=== PATIENT | female | born 1980 | race Two or more races ===

== ENCOUNTER 2017-03-10 09:48 | Inpatient (IN) | payer OTHER ==
[2017-03-10 11:24] VITALS: BMI 30.5
--- NOTE | 2017-03-10 13:13 | HP ---
COWS - Scale Resting Pulse: 0= [place] 80 or Below Sweatin=Flushed/Facial Moisture Restless Observation: 3= Extraneous Movement Pupil Size: 2= Moderately Dilated Bone or Joint Aches: 2= Severe Diffuse Aches Runny Nose/ Eye Tearin= Runny Nose/Eyes GI Upset > 30mins: 3= Vomiting/Diarrhea Tremor Observation: 2= Slight Tremor Visible Yawning Observation: 2= >3x During Session Anxiety or Irritability: 2=Irritable/Anxious Goose Flesh Skin: 0=Smooth Skin COWS Score: 20 Admission ROS S - HPI Chief Complaint: i need help to stop using heroin Allergies/Adverse Reactions: Allergies Allergy/AdvReac Type Severity Reaction Status Date / Time Sulfa (Sulfonamide Allergy Severe Difficulty Verified 03/10/17 12:49 Antibiotics) Breathing History of Present Illness: this 36 years old female with heroin dependence,withdrawal symptom,last detox 2002 [facility] seizure last 7 ears ago 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 fell from height at age of 53 years old with multiple fractures 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13 no significant period of sobriety - Ebola screening Have you traveled outside of the country in the last 21 days: No Have you had contact with anyone from an Ebola affected area: No Have you been sick,other than usual withdrawal symptoms: No Do you have a fever: No - Review of Systems Constitutional: Chills, Diaphoresis, Loss of Appetite, Malaise, Night Sweats, Changes in sleep, Weakness EENT: reports: Tearing, Nose Congestion Respiratory: reports: No Symptoms reported Cardiac: reports: No Symptoms Reported GI: reports: Diarrhea, Nausea, Vomiting, Abdominal cramping : reports: No Symptoms Reported Musculoskeletal: reports: Back Pain, Joint Pain, Muscle Pain, Joint Stiffness Integumentary: reports: Dryness Neuro: reports: Headache, Tremors Endocrine: reports: No Symptoms Reported Hematology: reports: No Symptoms Reported Psychiatric: reports: Judgement Intact, Mood/Affect Appropiate, other (ptsd) Patient History - Patient Medical History Hx Anemia: No Hx Asthma: No Hx Chronic Obstructive Pulmonary Disease (COPD): No Hx Cancer: Yes (tumor of l2 at age of [age] years old treated with radiation therapy) Hx Cardiac Disorders: No Hx Congestive Heart Failure: No Hx Hypertension: No Hx Hypercholesterolemia: No Hx Pacemaker: No HX Cerebrovascular Accident: No Hx Seizures: Yes (last 7 years ago) Hx Dementia: No Hx Diabetes: No Hx Gastrointestinal Disorders: Yes (gerd) Hx Liver Disease: No Hx Genitourinary Disorders: No Hx Sexually Transmitted Disorders: No Hx Renal Disease (ESRD): No Hx Thyroid Disease: No Hx Human Immunodeficiency Virus (HIV): No (last 08/13 negative) Hx Hepatitis C: No Hx Depression: No Hx Suicide Attempt: No Hx Bipolar Disorder: No Hx Schizophrenia: No Other Medical History: ptsd,no suicidal,no homicidal - Patient Surgical History Hx Orthopedic Surgery: Yes (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 History Hx Alcohol Use: No Hx Substance Use: Yes Substance Use Type: Heroin, Tranquilizers Family Disease History - Family Disease History Family Disease History: Other: Mother (cancer) Admission Physical Exam BHS - Vital Signs Vital Signs: Vital Signs - 24 hr 03/10/17 11:13 Temperature 97 F L Pulse Rate 80 Respiratory 20 Rate Blood Pressure 112/66 - Physical General Appearance: Yes: Moderate Distress, Irritable, Sweating, Anxious HEENTM: Yes: Hearing grossly Normal, Normal ENT Inspection, FLAKITA Respiratory: Yes: Lungs Clear, Normal Breath Sounds, No Respiratory Distress Neck: Yes: Within Normal Limits Breast: Yes: Breast Exam Deferred Cardiology: Yes: Within Normal Limits, Regular Rhythm, Regular Rate, S1, S2 Abdominal: Yes: Normal Bowel Sounds, Non Tender, Flat, Soft Genitourinary: Yes: Within Normal Limits Back: Yes: Within Normal Limits, Muscle Spasm Musculoskeletal: Yes: Back pain, Joint Stiffness, Muscle Pain Extremities: Yes: Normal Inspection, Normal Range of Motion, Tremors Neurological: Yes: deflash and wash operator II-XII NML intact, Fully Oriented, Alert, Motor Strength 5/5 Integumentary: Yes: Dry Lymphatic: Yes: Within Normal Limits - Diagnostic (1) Opioid dependence with withdrawal Current Visit: Yes Status: Acute (2) Uncomplicated sedative, hypnotic or anxiolytic withdrawal Current Visit: Yes Status: Acute (3) PTSD (post-traumatic stress disorder) Current Visit: Yes Status: Acute (4) Traumatic amputation of right index finger Current Visit: Yes Status: Acute (5) Traumatic amputation of right middle finger Current Visit: Yes Status: Acute (6) Fall from height of greater than 3 feet Current Visit: Yes Status: Acute (7) GERD (gastroesophageal reflux disease) Current Visit: Yes Status: Acute (8) Lumbar spine tumor Current Visit: Yes Status: Acute (9) Nicotine dependence Current Visit: Yes Status: Acute Cleared for Admission [facility] - Detox or Rehab [facility] Level of Care: Medically Managed Detox Regimen/Protocol: Methadone/Valium [facility] Breath Alcohol Content Breath Alcohol Content: 0.060 Urine Pregancy Test - Result Urine Test Results: Negative- NO Line Present Urine Drug Screen - Results Drug Screen Negative: No Urine Drug Screen Results: OPI-Opiates, MTD-Methadone
[2017-03-10] MEDS ORDERED: MAGNESIUM CITRATE 300 ML BOTTLE PO PRN (13:36)
[2017-03-10] MEDS ORDERED: MAGNESIUM HYDROX 2400MG/30ML ORAL SUSPENSION 30 ML CUP PO PRN (13:36)
[2017-03-10] MEDS ORDERED: LOPERAMIDE HCL 2 MG CAPSULE PO PRN (13:36)
[2017-03-10] MEDS ORDERED: IBUPROFEN 400 MG TABLET (FP) PO PRN (13:36)
[2017-03-10] MEDS ORDERED: guaiFENesin/D-METHORPHAN HB 10 ML UNIT-DOSE CUPS PO PRN (13:36)
[2017-03-10] MEDS ORDERED: MENTHOL/PHENOL 1 EACH UD MM PRN (13:36)
[2017-03-10] MEDS ORDERED: NICOTINE POLACRILEX 2 MG GUM BUC PRN (13:36)
[2017-03-10] MEDS ORDERED: ACETAMINOPHEN 325 MG TABLET (FP) PO PRN (13:36)
[2017-03-10] MEDS ORDERED: MAG HYDROX/AL HYDROX/SIMETH 30 ML UNIT-DOSE CUP PO PRN (13:36)
[2017-03-10] MEDS ORDERED: P-EPHED 60MG/TRIPROLIDI 2.5MG TABLET PO PRN (13:36)
[2017-03-10] MEDS ORDERED: diazePAM 5 MG TABLET PO ONE (13:49)
[2017-03-10] MEDS ORDERED: METHADONE HCL 10 MG TABLET (FOR DETOX USE ONLY) PO ONE ×2 (13:50→23:00)
[2017-03-10 17:35] LABS: URINE APPEARANCE CLEAR; URINE BILIRUBIN NEGATIVE (NEGATIVE); URINE BLOOD NEGATIVE (NEGATIVE); URINE COLOR STRAW; URINE GLUCOSE (UA) NEGATIVE (NEGATIVE); URINE KETONE NEGATIVE (NEGATIVE); URINE LEUK ESTERASE NEGATIVE (NEGATIVE); URINE NITRITE NEGATIVE (NEGATIVE); URINE PROTEIN NEGATIVE (NEGATIVE); URINE UROBILINOGEN NEGATIVE E.U./dl (0.2-1.0)
[2017-03-10] MEDS: CYCLOBENZAPRINE HCL 10 MG TABLET (FP) PO PRN (22:21)
[2017-03-10] MEDS: THIAMINE HCL 100 MG TABLET (FP) PO SCH (22:21)
[2017-03-10] MEDS: cloNIDine HCL 0.1 MG TABLET PO SCH (22:21)
[2017-03-10] MEDS: diazePAM 5 MG TABLET PO SCH (22:21)
[2017-03-10] MEDS: diphenhydrAMINE HCL 50 MG CAPSULE PO PRN (22:22)
[2017-03-11] MEDS: diazePAM 5 MG TABLET PO SCH ×3 (05:27→22:30)
[2017-03-11 09:18] LABS: HIV 1 & 2 AB NEGATIVE; HIV 1 AGp24 NEGATIVE
--- NOTE | 2017-03-11 09:40 | PN ---
S CIWA - CIWA Score Nausea/Vomitin Muscle Tremors: 3 Anxiety: 3 Agitation: 3 Paroxysmal Sweats: 2 Orientation: 0-Oriented Tacttile Disturbances: 1-Very Mild Itch/Numbness Auditory Disturbances: 1-Very Mild Visual Disturbances: 1-Very Mild Sensitivity Headache: 2-Mild CIWA-Ar Total Score: 19 BHS COWS - Scale Resting Pulse: 0= [place] 80 or Below Sweatin= Chills/Flushing Restless Observation: 3= Extraneous Movement Pupil Size: 1= Pupils >than Normal Bone or Joint Aches: 2= Severe Diffuse Aches Runny Nose/ Eye Tearin= Runny Nose/Eyes GI Upset > 30mins: 3= Vomiting/Diarrhea Tremor Observation of Outstretched Hands: 2= Slight Tremor Visible Yawning Observation: 1= 1-2x During Session Anxiety or Irritability: 2=Irritable/Anxious Goose Flesh Skin: 0=Smooth Skin COWS Score: 17 S Progress Note (SOAP) Subjective: ALERT,IRRITABLE,ANXIOUS,TREMOR,PAIN IN THE BODY AND BACK,INTERRUPTED SLEEP Objective: 03/11/17 09:38 Vital Signs Temperature 97.9 F 03/11/17 06:00 Pulse Rate 64 03/11/17 06:00 Respiratory Rate 18 03/11/17 06:00 Blood Pressure 100/60 03/11/17 06:00 O2 Sat by Pulse Oximetry (%) EKG SINUS BRADYCARDIA 58/MIN Assessment: 03/11/17 09:39 Laboratory Last Values Urine Color Straw 03/10/17 15:00 Urine Appearance Clear 03/10/17 15:00 Urine pH 5.0 (5.0-8.0) 03/10/17 15:00 Ur Specific [place] 1.006 (1.001-1.035) 03/10/17 15:00 Urine Protein Negative (NEGATIVE) 03/10/17 15:00 Urine Glucose (UA) Negative (NEGATIVE) 03/10/17 15:00 Urine Ketones Negative (NEGATIVE) 03/10/17 15:00 Urine Blood Negative (NEGATIVE) 03/10/17 15:00 Urine Nitrite Negative (NEGATIVE) 03/10/17 15:00 Urine Bilirubin Negative (NEGATIVE) 03/10/17 15:00 Urine Urobilinogen Negative E.U./dl (0.2-1.0) 03/10/17 15:00 Ur Leukocyte Esterase Negative (NEGATIVE) 03/10/17 15:00 HIV 1&2 Antibody Screen Negative 03/10/17 13:00 HIV P24 Antigen Negative 03/10/17 13:00 LABS PENDING 03/11/17 09:40 WITHDRAWAL SYMPTOM Plan: CONTINUE DETOX
[2017-03-11] MEDS: cloNIDine HCL 0.1 MG TABLET PO SCH ×2 (10:00→22:30)
[2017-03-11] MEDS ORDERED: METHADONE HCL 10 MG TABLET (FOR DETOX USE ONLY) PO SCH (10:00)
--- NOTE | 2017-03-11 10:10 | EKG ---
Test Reason : Blood Pressure : / mmHG Vent. Rate : 058 BPM Atrial Rate : 058 BPM P-R Int : 162 ms QRS Dur : 102 ms QT Int : 454 ms P-R-T Axes : 003 072 057 degrees QTc Int : 445 ms SINUS BRADYCARDIA EARLY REPOLARIZATION NO PREVIOUS ECGS AVAILABLE Confirmed by JOSE LUIS URBAN MD ([id number]) on 03/11/2017 10:09:42 AM Referred By: Confirmed By:JOSE LUIS URBAN MD
[2017-03-11 10:16] LABS: MCH 28.9 pg (25.7-33.7); MCHC 34.2 g/dl (32.0-36.0); MEAN CELL VOLUME 84.4 fl (80-96); MEAN PLT VOLUME 9.8 fl (7.5-11.1); PLATELET COUNT 189 K/MM3 (134-434); RDW 15.1 % (11.6-15.6); WHITE BLOOD COUNT 7.2 K/mm3 (4.0-10.0)
[2017-03-11 10:22] LABS: ALBUMIN 3.5 g/dl (3.4-5.0); ALK PHOS 100 U/L (45-117); ANION GAP 9 (8-16); BILIRUBIN,TOTAL 0.3 mg/dL (0.2-1.0); CALCIUM 8.6 mg/dL (8.5-10.1); CO2 26 mmol/L (21-32); COCKROFT - GAULT 141.3295; CREATININE 0.8 mg/dL (0.55-1.02); GLUCOSE,RANDOM 94 mg/dL (74-106); SGOT/AST 32 U/L (15-37); SGPT/ALT 33 U/L (12-78); TOT PROT 7.2 g/dl (6.4-8.2)
[2017-03-11] MEDS: PRENATAL VITAMINS W/ FOLIC ACID TABLET (FP) PO SCH (10:25)
--- NOTE | 2017-03-11 10:48 | CONSULT ---
[facility] Psychiatric Consult - Data Date of interview: 03/11/17 Admission source: [facility] Identifying data: First admission to [facility] for this 37 y/o female seeking detox treatment for heroin dependence.Patient is ,a mother of two,domiciled and part-time employed. Substance Abuse History: - Smoking Cessation. Smoking history: Current every day smoker. Have you smoked in the past 12 months: Yes. Aproximately how many cigarettes per day: 10. Hx Chewing Tobacco Use: No. Initiated information on smoking cessation: Yes. 'Breaking Loose' booklet given: 03/10/17. - Substance & Tx. History. Hx Alcohol Use: No. Hx Substance Use: Yes. Substance Use Type : Heroin, Tranquilizers. Confirmed by patient. Medical History: Obesity,seizure disorder,GERD,amputated right index/right middle finger (escalator accident) and a history of radiation therapy (age 13) for tumor of lumbar spine. Psychiatric History: Patient admits to one psychiatric hospitalization,years ago ,after the of her mother.She is currently under the care of a private psychiatrist in [facility].Diagnosed with PTSD.Ms Tolliver is prescribed clonazepam and clonidine.She denies history of suicide attempts. Physical/Sexual Abuse/Trauma History: Patient declined to discuss this topic. Additional Comment: Urine Drug Screen Results: OPI-Opiates, MTD-Methadone.Noted. Mental Status Exam - Mental Status Exam Alert and Oriented to: Time, Place, Person Cognitive Function: Good Patient Appearance: Disheveled Mood: Withdrawn, Anxious, Apprehensive Affect: Mood Congruent Patient Behavior: Sedated (light sedation), Fatigued Speech Pattern: Clear, Appropriate Voice Loudness: Normal Thought Process: Intact, Goal Oriented Thought Disorder: Not Present Hallucinations: Denies Suicidal Ideation: Denies Homicidal Ideation: Denies Insight/Judgement: Fair Sleep: Fair Appetite: Good Muscle strength/Tone: Normal Gait/Station: Normal Psychiatric Findings - Problem List ([place] 1, 2,3) (1) Uncomplicated sedative, hypnotic or anxiolytic withdrawal Current Visit: Yes Status: Acute (2) Opioid dependence with withdrawal Current Visit: Yes Status: Acute (3) Nicotine dependence Current Visit: Yes Status: Acute (4) PTSD (post-traumatic stress disorder) Current Visit: Yes Status: Chronic (5) GERD (gastroesophageal reflux disease) Current Visit: Yes Status: Chronic (6) Lumbar spine tumor Current Visit: Yes Status: Chronic (7) Seizure Current Visit: Yes Status: Chronic (8) Traumatic amputation of right index finger Current Visit: Yes Status: Chronic (9) Traumatic amputation of right middle finger Current Visit: Yes Status: Chronic - Initial Treatment Plan Initial Treatment Plan: Psychoeducation.Detoxification.Observation.
[2017-03-11] MEDS: diazePAM 5 MG TABLET PO PRN (12:40)
[2017-03-11] MEDS: THIAMINE HCL 100 MG TABLET (FP) PO SCH (22:31)
[2017-03-12] MEDS: diazePAM 5 MG TABLET PO SCH ×2 (09:59→22:13)
[2017-03-12] MEDS: METHADONE HCL 5 MG TABLET (FOR DETOX USE ONLY) PO SCH (09:59)
[2017-03-12] MEDS: cloNIDine HCL 0.1 MG TABLET PO SCH ×2 (09:59→22:13)
[2017-03-12] MEDS: PRENATAL VITAMINS W/ FOLIC ACID TABLET (FP) PO SCH (09:59)
[2017-03-12] MEDS: hydrOXYzine PAMOATE 50 MG CAPSULE (FP) PO PRN (10:01)
[2017-03-12] MEDS: CYCLOBENZAPRINE HCL 10 MG TABLET (FP) PO PRN ×2 (10:01→22:14)
--- NOTE | 2017-03-12 12:57 | PN ---
S CIWA - CIWA Score Nausea/Vomitin Muscle Tremors: 3 Anxiety: 3 Agitation: 2 Paroxysmal Sweats: 1-Minimal Palms Moist Orientation: 0-Oriented Tacttile Disturbances: 1-Very Mild Itch/Numbness Auditory Disturbances: 1-Very Mild Visual Disturbances: 1-Very Mild Sensitivity Headache: 2-Mild CIWA-Ar Total Score: 17 BHS Progress Note (SOAP) Subjective: ALERT,IRRITABLE,ANXIOUS,INTERRUPTED SLEEP,TREMOR,PAIN IN THE BACK,BODY Objective: 03/12/17 12:55 Vital Signs Temperature 98.2 F 03/12/17 10:23 Pulse Rate 75 03/12/17 10:23 Respiratory Rate 18 03/12/17 10:23 Blood Pressure 128/91 03/12/17 10:23 O2 Sat by Pulse Oximetry (%) Laboratory Last Values WBC 7.2 K/mm3 (4.0-10.0) 03/11/17 06:00 RBC 4.50 M/mm3 (3.60-5.2) 03/11/17 06:00 Hgb 13.0 GM/dL (10.7-15.3) 03/11/17 06:00 Hct 37.9 % (32.4-45.2) 03/11/17 06:00 MCV 84.4 fl (80-96) 03/11/17 06:00 MCHC 34.2 g/dl (32.0-36.0) 03/11/17 06:00 RDW 15.1 % (11.6-15.6) 03/11/17 06:00 Plt Count 189 K/MM3 (134-434) 03/11/17 06:00 MPV 9.8 fl (7.5-11.1) 03/11/17 06:00 Sodium 141 mmol/L (136-145) 03/11/17 06:00 Potassium 3.7 mmol/L (3.5-5.1) 03/11/17 06:00 Chloride 106 mmol/L (98-107) 03/11/17 06:00 Carbon Dioxide 26 mmol/L (21-32) 03/11/17 06:00 Anion Gap 9 (8-16) 03/11/17 06:00 BUN 7 mg/dL (7-18) 03/11/17 06:00 Creatinine 0.8 mg/dL (0.55-1.02) 03/11/17 06:00 Creat Clearance w eGFR > 60 (>60) 03/11/17 06:00 Random Glucose 94 mg/dL (74-106) 03/11/17 06:00 Calcium 8.6 mg/dL (8.5-10.1) 03/11/17 06:00 Total Bilirubin 0.3 mg/dL (0.2-1.0) 03/11/17 06:00 AST 32 U/L (15-37) 03/11/17 06:00 ALT 33 U/L (12-78) 03/11/17 06:00 Alkaline Phosphatase 100 U/L (45-117) 03/11/17 06:00 Total Protein 7.2 g/dl (6.4-8.2) 03/11/17 06:00 Albumin 3.5 g/dl (3.4-5.0) 03/11/17 06:00 Urine Color Straw 03/10/17 15:00 Urine Appearance Clear 03/10/17 15:00 Urine pH 5.0 (5.0-8.0) 03/10/17 15:00 Ur Specific [place] 1.006 (1.001-1.035) 03/10/17 15:00 Urine Protein Negative (NEGATIVE) 03/10/17 15:00 Urine Glucose (UA) Negative (NEGATIVE) 03/10/17 15:00 Urine Ketones Negative (NEGATIVE) 03/10/17 15:00 Urine Blood Negative (NEGATIVE) 03/10/17 15:00 Urine Nitrite Negative (NEGATIVE) 03/10/17 15:00 Urine Bilirubin Negative (NEGATIVE) 03/10/17 15:00 Urine Urobilinogen Negative E.U./dl (0.2-1.0) 03/10/17 15:00 Ur Leukocyte Esterase Negative (NEGATIVE) 03/10/17 15:00 RPR Titer Nonreactive (NONREACTIVE) 03/11/17 06:00 HIV 1&2 Antibody Screen Negative 03/10/17 13:00 HIV P24 Antigen Negative 03/10/17 13:00 Assessment: 03/12/17 12:56 WITHDRAWAL SYMPTOM Plan: CONTINUE DETOX
[2017-03-12] MEDS: diphenhydrAMINE HCL 50 MG CAPSULE PO PRN (22:14)
[2017-03-12] MEDS: THIAMINE HCL 100 MG TABLET (FP) PO SCH (22:14)
[2017-03-13] MEDS: diazePAM 5 MG TABLET PO PRN ×2 (06:42→13:14)
[2017-03-13] MEDS: PRENATAL VITAMINS W/ FOLIC ACID TABLET (FP) PO SCH (10:41)
[2017-03-13] MEDS: cloNIDine HCL 0.1 MG TABLET PO SCH ×2 (10:41→22:34)
[2017-03-13] MEDS: hydrOXYzine PAMOATE 50 MG CAPSULE (FP) PO PRN (10:42)
[2017-03-13] MEDS: CYCLOBENZAPRINE HCL 10 MG TABLET (FP) PO PRN ×2 (10:42→22:36)
[2017-03-13] MEDS: diazePAM 5 MG TABLET PO SCH ×2 (10:42→22:34)
[2017-03-13] MEDS: METHADONE HCL 5 MG TABLET (FOR DETOX USE ONLY) PO SCH (10:42)
--- NOTE | 2017-03-13 13:02 | PN ---
S Progress Note (SOAP) Subjective: ALERT,IRRITABLE,ANXIOUS,INTERRUPTED SLEEP,PAIN IN THE BACK Objective: 03/13/17 13:00 Vital Signs Temperature 98.1 F 03/13/17 10:44 Pulse Rate 66 03/13/17 10:44 Respiratory Rate 18 03/13/17 10:44 Blood Pressure 142/83 03/13/17 10:44 O2 Sat by Pulse Oximetry (%) Assessment: 03/13/17 13:01 WITHDRAWAL SYMPTOM Plan: CONTINUE DETOX,DISCHARGE IN AM
[2017-03-13] MEDS: THIAMINE HCL 100 MG TABLET (FP) PO SCH (22:34)
[2017-03-13] MEDS: diphenhydrAMINE HCL 50 MG CAPSULE PO PRN (22:36)
--- NOTE | 2017-03-14 08:50 | PN ---
S Progress Note (SOAP) Subjective: ALERT,NO COMPLAINT Objective: 03/14/17 08:49 Vital Signs Temperature 97.7 F 03/14/17 06:00 Pulse Rate 61 03/14/17 06:00 Respiratory Rate 18 03/14/17 06:00 Blood Pressure 107/63 03/14/17 06:00 O2 Sat by Pulse Oximetry (%) Assessment: 03/14/17 08:49 DETOX COMPLETED,NO WITHDRAWAL SYMPTOM Plan: DISCHARGE TODAY,FOLLOW UP WITH AFTER PROGRAM ARRANGEMENT AND PMD FOR MEDICAL PROBLEM
--- NOTE | 2017-03-14 08:56 | DS ---
[facility] Detox Discharge Summary Admission Date: 03/10/17 Discharge Date: 03/14/17 - History Present History: Opioid Dependence, Sedative Dependence Additional Comments: FOLLOW UP WITH AFTER CARE PROGRAM ARRANGEMENT AND PMD FOR MEDICAL PROBLEM Pertinent Past History: FELL FROM HEIGHT GERD TRAUMATIC AMPUTATION OF RIGHT INDEX AND MIDDLE FINGER LUMBAR SPINE TOMOR HISTORY NICOTINE DEPENDENCE PTSD LOW BACK PAIN MULTIPLE FX HISTORY - Physical Exam Results Vital Signs: Vital Signs Temperature 97.7 F 03/14/17 06:00 Pulse Rate 61 03/14/17 06:00 Respiratory Rate 18 03/14/17 06:00 Blood Pressure 107/63 03/14/17 06:00 O2 Sat by Pulse Oximetry (%) Pertinent Admission Physical Exam Findings: WITHDRAWAL SYMPTOM - Treatment Hospital Course: Detox Protocol Followed, Detoxed Safely, Responded well, Discharged Condition Good Patient has Accepted a Rehab Referral to: DECLINED - Medication Discharge Medications: Ambulatory Orders Clonazepam [Klonopin -] 2 mg PO TID 03/10/17 Clonidine HCl [Catapres -] 0.2 mg PO Q12H 03/10/17 - Diagnosis (1) Opioid dependence with withdrawal Current Visit: Yes Status: Acute (2) Uncomplicated sedative, hypnotic or anxiolytic withdrawal Current Visit: Yes Status: Acute (3) PTSD (post-traumatic stress disorder) Current Visit: Yes Status: Chronic (4) Traumatic amputation of right index finger Current Visit: Yes Status: Chronic (5) Traumatic amputation of right middle finger Current Visit: Yes Status: Chronic (6) Fall from height of greater than 3 feet Current Visit: Yes Status: Acute (7) GERD (gastroesophageal reflux disease) Current Visit: Yes Status: Chronic (8) Lumbar spine tumor Current Visit: Yes Status: Chronic (9) Nicotine dependence Current Visit: Yes Status: Acute
--- NOTE | 2017-03-14 09:31 | PN ---
[facility] Progress Note Note: PATIENT STILL ON METHADONE REGIMEN 10 MGS TODAY,5 MGS IN AM,SHE WOULD LIKE TO STAY FOR MEDICATION IN AM, D/C DISCHARGE TODAY,DISCHARGE IN AM
[2017-03-14] MEDS ORDERED: METHADONE HCL 10 MG TABLET (FOR DETOX USE ONLY) PO SCH (10:00)
[2017-03-14] MEDS ORDERED: diazePAM 5 MG TABLET PO SCH (10:00)
[2017-03-14] MEDS: PRENATAL VITAMINS W/ FOLIC ACID TABLET (FP) PO SCH (10:25)
[2017-03-14] MEDS: cloNIDine HCL 0.1 MG TABLET PO SCH ×2 (10:25→22:31)
[2017-03-14] MEDS: CYCLOBENZAPRINE HCL 10 MG TABLET (FP) PO PRN ×2 (10:26→22:31)
[2017-03-14] MEDS: diphenhydrAMINE HCL 50 MG CAPSULE PO PRN (22:31)
[2017-03-14] MEDS: THIAMINE HCL 100 MG TABLET (FP) PO SCH (22:32)
[2017-03-15] MEDS: CYCLOBENZAPRINE HCL 10 MG TABLET (FP) PO PRN (05:44)
[2017-03-15] MEDS ORDERED: METHADONE HCL 5 MG TABLET (FOR DETOX USE ONLY) PO SCH (06:00)
[2017-03-15 06:09] VITALS: BP 123/78; PULSE 65; TEMP 98.4
--- NOTE | 2017-03-15 08:17 | PN ---
S Progress Note (SOAP) Subjective: ALERT,NO COMPLAINT Objective: 03/15/17 08:15 Vital Signs Temperature 98.4 F 03/15/17 06:09 Pulse Rate 65 03/15/17 06:09 Respiratory Rate 16 03/15/17 06:09 Blood Pressure 123/78 03/15/17 06:09 O2 Sat by Pulse Oximetry (%) Assessment: 03/15/17 08:16 DETOX COMPLETED,NO WITHDRAWAL SYMPTOM Plan: DISCHARGE TODAY,FOLLOW UP WITH AFTER CARE PROGRAM ARRANGEMENT
--- NOTE | 2017-03-15 08:22 | DS ---
[facility] Detox Discharge Summary Admission Date: 03/10/17 Discharge Date: 03/15/17 - History Present History: Opioid Dependence, Sedative Dependence Additional Comments: FOLLOW UP WITH AFTER CARE PROGRAM ARRANGEMENT AND PMD FOR MEDICAL PROBLEMS Pertinent Past History: FELL FROM HEIGHT TRAUMATIC AMPUTATION OF RIGHT INDEX AND MIDDLE FINGERS GERD LUMBAR SPINE TUMOR NICOTINE DEPENDENCE MULTIPLE FRACTURES HISTORY - Physical Exam Results Vital Signs: Vital Signs Temperature 98.4 F 03/15/17 06:09 Pulse Rate 65 03/15/17 06:09 Respiratory Rate 16 03/15/17 06:09 Blood Pressure 123/78 03/15/17 06:09 O2 Sat by Pulse Oximetry (%) Pertinent Admission Physical Exam Findings: WITHDRAWAL SYMPTOM - Treatment Hospital Course: Detox Protocol Followed, Detoxed Safely, Responded well, Discharged Condition Good Patient has Accepted a Rehab Referral to: DECLINED - Medication Discharge Medications: Ambulatory Orders Clonidine HCl [Catapres -] 0.2 mg PO Q12H 03/10/17 - Diagnosis (1) Opioid dependence with withdrawal Current Visit: Yes Status: Acute (2) Uncomplicated sedative, hypnotic or anxiolytic withdrawal Current Visit: Yes Status: Acute (3) PTSD (post-traumatic stress disorder) Current Visit: Yes Status: Chronic (4) Traumatic amputation of right index finger Current Visit: Yes Status: Chronic (5) Traumatic amputation of right middle finger Current Visit: Yes Status: Chronic (6) Fall from height of greater than 3 feet Current Visit: Yes Status: Acute (7) GERD (gastroesophageal reflux disease) Current Visit: Yes Status: Chronic (8) Lumbar spine tumor Current Visit: Yes Status: Chronic (9) Nicotine dependence Current Visit: Yes Status: Acute - AMA Did Patient Leave Against Medical Advice: No
== END 2017-03-15 09:19 | disposition home or self-care (01) | DRG 897 ==
LOC: YASAS 09:48 → Y6N 12:44
PROVIDERS: ADMIT Internal Medicine Addiction Medicine; ATTEND Internal Medicine Addiction Medicine
PROC: HZ2ZZZZ Detoxification Services for Substance Abuse Treatment (ICD-10-PCS; principal; 2017-03-10)
DX: F11.23 Opioid dependence with withdrawal (principal); F13.230 Sedative, hypnotic or anxiolytic dependence with withdrawal, uncomplicated; F17.210 Nicotine dependence, cigarettes, uncomplicated; F43.10 Post-traumatic stress disorder, unspecified; Z89.021 Acquired absence of right finger(s); K21.9 Gastro-esophageal reflux disease without esophagitis; D33.4 Benign neoplasm of spinal cord; D49.7 Neoplasm of unspecified behavior of endocrine glands and other parts of nervous system; E66.9 Obesity, unspecified; R00.1 Bradycardia, unspecified; Z68.30 Body mass index [BMI] 30.0-30.9, adult; Z91.81 History of falling; Z86.69 Personal history of other diseases of the nervous system and sense organs
CPT/HCPCS: 36415; 80053; 81003; 85027; 86593; 87389; 93005; 93010